=== PATIENT | female | born 1985 | race Caucasian/White ===

== ENCOUNTER 2017-03-06 20:27 | Emergency (ER) | payer MEDICAID, OTHER ==
[~2017-03-06] VITALS: Ht 165.1 cm; Wt 59.0 kg
[2017-03-06] MEDS ORDERED: ONDANSETRON ODT 4 MG TAB.RAPDIS SL ONE (21:00)
[2017-03-06] MEDS ORDERED: PROCHLORPERAZINE EDISYLATE 10 MG/2 ML VIAL IM ONE (21:00)
[2017-03-06] MEDS ORDERED: DICYCLOMINE HCL 10 MG/5 ML UDC LIQ PO ONE (21:00)
[2017-03-06] MEDS ORDERED: PROCHLORPERAZINE EDISYLATE 10 MG/2 ML VIAL ONE (21:20)
[2017-03-06] MEDS ORDERED: DICYCLOMINE HCL 10 MG/5 ML UDC LIQ ONE (21:20)
[2017-03-06] MEDS ORDERED: ONDANSETRON ODT 4 MG TAB.RAPDIS ONE (21:20)
[2017-03-06 21:48] LABS: POTASSIUM 3.4 mmol/L (3.5-5.1)
[2017-03-06 21:51] LABS: BASOPHILS % (AUTO) 0.3 % (0.0-2.0); EOSINOPHILS % (AUTO) 0.2 % (0.0-7.0); HEMATOCRIT 39.4 % (37-47); LYMPHOCYTES # (AUTO) 1.5 K/UL (0.8-4.8); LYMPHOCYTES % (AUTO) 17.6 % (20.5-51.5); MEAN CORPUSCULAR HGB CONC 33 g/dL (32.0-37.0); MEAN CORPUSCULAR VOLUME 90.8 FL (81.0-99.0); MONOCYTES # (AUTO) 0.3 K/UL (0.1-1.30); MONOCYTES % (AUTO) 3.3 % (0.0-11.0); NEUTROPHILS # (AUTO) 6.9 K/UL (1.8-8.9); NEUTROPHILS % (AUTO) 78.6 % (38.5-71.5); PLATELET COUNT (AUTO) 232 K/UL (150-450); RED BLOOD CELL COUNT(AUTO) 4.34 MIL/UL (4.2-5.4); WHITE BLOOD COUNT (AUTO) 8.7 K/UL (4.0-11.2)
[2017-03-06 21:55] LABS: BILIRUBIN,DIRECT 0.1 mg/dL (0.0-0.2); BILIRUBIN,TOTAL 0.3 mg/dL (0.2-1.0)
--- NOTE | 2017-03-06 22:05 | NUR ---
Patient eloped from facility. ER physician notified.
== END 2017-03-06 22:06 | disposition left against medical advice (07) ==
LOC: ER 20:29
DX: F11.23 Opioid dependence with withdrawal (principal); F17.200 Nicotine dependence, unspecified, uncomplicated; I47.1 Supraventricular tachycardia; Z59.0 Homelessness; Z88.8 Allergy status to other drugs, medicaments and biological substances
CPT/HCPCS: 36415; 80048; 80076; 83690; 84703; 85025; 93005; 96372; 99285; A4663; J0780; Q0162

== ENCOUNTER 2017-06-09 11:57 | Emergency (ER) | payer MEDICAID ==
[~2017-06-09] VITALS: Ht 165.1 cm; Wt 59.0 kg
[2017-06-09] MEDS ORDERED: ONDANSETRON IV *ER 4 MG/2 ML VIAL IV ONE (13:57)
[2017-06-09] MEDS ORDERED: LORAZEPAM 2 MG/1 ML VIAL IV ONE (13:57)
[2017-06-09] MEDS ORDERED: PIPERACILLIN/TAZOBACTAM/D5W 3.375 G in PREMIXED 1 EACH IV ONE (14:00)
[2017-06-09] MEDS ORDERED: IV NS 1000 ML 1,000 ML IV ONE (14:00)
--- NOTE | 2017-06-09 14:21 | NUR ---
PT REFUSED SALINE LOCK TYO EXTREMITIES, STATED SHE HAD TO HAVE AN IV TO HER NECK PLACED BY . DR BOOGIE NOTIFIED.
[2017-06-09 14:45] LABS: *BLOOD, URINE NEGATIVE (NEGATIVE); *CLARITY,URINE SLIGHTLY CLOUDY (CLEAR); *COLOR,URINE YELLOW (YELLOW); *KETONES,URINE TRACE (NEGATIVE); *PROTEIN,URINE 1+ (NEGATIVE); LEUKOCYTE ESTERASE ,URINE NEGATIVE (NEGATIVE); NITRITE, URINE NEGATIVE (NEGATIVE); UGLUCOSE NEGATIVE (NEGATIVE)
[2017-06-09 15:14] LABS: *BILIRUBIN,URIN NEGATIVE (NEGATIVE)
[2017-06-09 15:16] LABS: BACTERIA,URINE FEW /HPF (NONE SEEN); SQUAMOUS EPITHELIAL CELL,UR MODERATE /HPF (NONE SEEN); WBC,URINE 0-3 /HPF (0-3)
[2017-06-09 15:17] LABS: CALCIUM OXALATE CRYSTALS,UR MANY /HPF (NONE SEEN); MUCUS,URINE MANY /LPF (0-FEW)
[2017-06-09 15:23] LABS: *AMPHETAMINE, URINE POSITIVE (NEGATIVE); *BARBITURATE, URINE NEGATIVE (NEGATIVE); *CANNABINOID, URINE NEGATIVE (NEGATIVE); *COCCAINE, URINE POSITIVE (NEGATIVE); *OPIATE, URINE POSITIVE (NEGATIVE); *PHENCYCLIDINE SCREEN,URINE NEGATIVE (NEGATIVE)
--- NOTE | 2017-06-09 15:45 | NUR ---
DR BOOGIE ATTEMPTED TWICE FOR IV AXCES TO NECK AND WAS NOT SUCCESSFUL. CALLED [facility] FOR DR JEFFERS, DR JEFFERS IS TO BE PAGED/CALLED BY [facility] AND DIRECTED TO CALL US BACK.
[2017-06-09] MEDS ORDERED: LORAZEPAM 1 MG TABLET ONE (15:51)
[2017-06-09] MEDS ORDERED: LORAZEPAM 0.5 MG TABLET PO ONE (16:00)
[2017-06-09] MEDS ORDERED: AMOXICILLIN-CLAVUL 875-125MG TABLET ONE (16:15)
[2017-06-09] MEDS ORDERED: AMOXICILLIN-CLAVUL 875-125MG TABLET PO ONE (16:15)
[2017-06-09] MEDS ORDERED: MORPHINE SULFATE 4 MG/1 ML DISP.SYRIN IM ONE (17:57)
--- NOTE | 2017-06-09 17:57 | NUR ---
DR BOOGIE ATTEMPTED A FEMORAL CENTRAL LINE AND WAS NOT SUCESSFULL. DR JEFFERS ACCEPTED THE PT TO [facility]. PT WAS SCHEDULED FOR PICC LINE AT 9PM.
[2017-06-09] MEDS ORDERED: CEFTRIAXONE 1 G VIAL IM ONE (18:00)
--- NOTE | 2017-06-09 18:11 | NUR ---
PHARMACY NOTE; MUL;TIPLE ATTEMPTS TO OBTAIN IV AXCESS. NO IV MEDS/FLUIDFS ADMIN. SO DR BOOGIE AWARE.
[2017-06-09] MEDS ORDERED: MORPHINE SULFATE 4 MG/1 ML DISP.SYRIN ONE (18:17)
[2017-06-09] MEDS ORDERED: CEFTRIAXONE 1 G VIAL ONE (18:17)
[2017-06-09] MEDS ORDERED: LIDOCAINE HCL 1% 20 ML VIAL ONE (18:18)
--- NOTE | 2017-06-09 19:20 | NUR ---
BEDSIDE REPORT TO ERIN MOJICA.
--- NOTE | 2017-06-09 19:29 | NUR ---
Pt. admitted to [facility]. Pending PICC/Midline placement. Report given to [facility] Intake Staff.
== END 2017-06-09 19:31 | disposition home or self-care (01) ==
LOC: ER 11:57
DX: F12.10 Cannabis abuse, uncomplicated (principal); F14.10 Cocaine abuse, uncomplicated; F11.10 Opioid abuse, uncomplicated; L03.116 Cellulitis of left lower limb; F17.210 Nicotine dependence, cigarettes, uncomplicated; Z88.8 Allergy status to other drugs, medicaments and biological substances; Z59.0 Homelessness
CPT/HCPCS: 71045; 80307; 93005; A4663; J0696; J2270; J3490; J7030; J7050

== ENCOUNTER 2018-03-09 19:54 | Emergency (ER) | payer MEDICAID ==
[~2018-03-09] VITALS: Ht 165.1 cm; Wt 59.9 kg
[2018-03-09 20:42] LABS: *BILIRUBIN,URIN NEGATIVE (NEGATIVE); *BLOOD, URINE NEGATIVE (NEGATIVE); *COLOR,URINE YELLOW (YELLOW); *KETONES,URINE NEGATIVE (NEGATIVE); *PROTEIN,URINE 1+ (NEGATIVE); *URINE HCG, QUAL NEGATIVE (NEGATIVE); LEUKOCYTE ESTERASE ,URINE TRACE (NEGATIVE); NITRITE, URINE NEGATIVE (NEGATIVE); PH,URINE 6.5 (5.0-8.0); UGLUCOSE NEGATIVE (NEGATIVE)
[2018-03-09 20:51] LABS: *CLARITY,URINE CLOUDY (CLEAR)
[2018-03-09 20:53] LABS: BACTERIA,URINE MODERATE /HPF (NONE SEEN); MUCUS,URINE MANY /LPF (0-FEW); SQUAMOUS EPITHELIAL CELL,UR MANY /HPF (NONE SEEN)
[2018-03-09 20:57] LABS: *AMPHETAMINE, URINE POSITIVE (NEGATIVE); *BARBITURATE, URINE NEGATIVE (NEGATIVE); *CANNABINOID, URINE NEGATIVE (NEGATIVE); *COCCAINE, URINE POSITIVE (NEGATIVE); *OPIATE, URINE POSITIVE (NEGATIVE); *PHENCYCLIDINE SCREEN,URINE NEGATIVE (NEGATIVE)
[2018-03-09 21:27] LABS: BASOPHILS # (AUTO) 0.1 K/uL (0.0-8.0); BASOPHILS % (AUTO) 0.7 % (0.0-2.0); EOSINOPHILS # (AUTO) 0.1 K/uL (0.0-0.7); HEMATOCRIT 39.6 % (31.2-41.9); HEMOGLOBIN 13.5 g/dL (10.9-14.3); LYMPHOCYTES # (AUTO) 2.7 K/uL (20.0-40.0); LYMPHOCYTES % (AUTO) 21.7 % (20.5-51.5); MEAN CORPUSCULAR HGB CONC 34 g/dL (32.3-35.6); MEAN CORPUSCULAR VOLUME 93.9 fL (75.5-95.3); MONOCYTES # (AUTO) 0.8 K/uL (2.0-10.0); MONOCYTES % (AUTO) 6.6 % (0.0-11.0); NEUTROPHILS # (AUTO) 8.7 K/uL (1.8-8.9); PLATELET COUNT (AUTO) 301 K/uL (179-408); RED BLOOD CELL COUNT(AUTO) 4.22 MIL/uL (3.63-4.92); WHITE BLOOD COUNT (AUTO) 12.5 K/uL (3.8-11.8)
[2018-03-09 21:34] LABS: CREATININE 0.9 mg/dL (0.6-1.3)
[2018-03-09 21:39] LABS: BILIRUBIN,DIRECT 0.1 mg/dL (0.0-0.2); BILIRUBIN,TOTAL 0.3 mg/dL (0.2-1.0); TOTAL PROTEIN, SERUM 8.5 g/dL (6.4-8.2)
[2018-03-09 21:41] LABS: ETHANOL < 3 MG/DL (0-0)
[2018-03-09] MEDS ORDERED: POTASSIUM CHLORIDE 10 MEQ TAB.PRT.SR ONE (21:42)
[2018-03-09] MEDS ORDERED: POTASSIUM CHLORIDE 10 MEQ TAB.PRT.SR PO ONE (21:45)
[2018-03-09 21:59] LABS: THYROID STIMULATING HORMONE 0.964 mIU/mL (0.358-3.740)
[2018-03-09] MEDS ORDERED: NEOMY/BACITRA/POLYMYXIN B OINT UD PACKET TP ONE ×2 (22:30)
--- NOTE | 2018-03-09 22:37 | NUR ---
Patient discharged to home in stable conditon. Written and verbal after care instructions given. Patient verbalizes understanding of instructions. Pt walked out of ER in steady gait with friend. All belongings with pt. VSS. NAD noted.
[2018-03-09 22:39] VITALS: BP 124/84
== END 2018-03-09 22:43 | disposition home or self-care (01) ==
LOC: ER 19:55
DX: R00.2 Palpitations (principal); E87.6 Hypokalemia; F17.200 Nicotine dependence, unspecified, uncomplicated; F11.10 Opioid abuse, uncomplicated; F14.10 Cocaine abuse, uncomplicated; Z59.0 Homelessness; Z88.8 Allergy status to other drugs, medicaments and biological substances
CPT/HCPCS: 36415; 71045; 80048; 80076; 80307; 81001; 83690; 84443; 84484; 84703; 85025; 93005; 99284; G0480; 70030-TC; A4663

== ENCOUNTER 2019-05-28 04:54 | Emergency (ER) | payer MEDICAID ==
[~2019-05-28] VITALS: Ht 165.1 cm; Wt 59.0 kg
[2019-05-28 05:08] LABS: *BILIRUBIN,URIN NEGATIVE (NEGATIVE); *BLOOD, URINE TRACE (NEGATIVE); *CLARITY,URINE CLEAR (CLEAR); *COLOR,URINE YELLOW (YELLOW); *KETONES,URINE TRACE (NEGATIVE); *URINE HCG, QUAL NEGATIVE (NEGATIVE); LEUKOCYTE ESTERASE ,URINE NEGATIVE (NEGATIVE); NITRITE, URINE NEGATIVE (NEGATIVE); UGLUCOSE NEGATIVE (NEGATIVE)
--- NOTE | 2019-05-28 05:12 | NUR ---
Patient presents to ER with c/o of Rt flank pain x 1 week. Patient denies pain or burning during urination. Patient is alert and oriented x 4. Patient noted to be writhing in pain. Placed in Bed 2B and attached to bedside monitor. Awaiting MD rogers.
[2019-05-28 05:13] LABS: BACTERIA,URINE FEW /HPF (NONE SEEN); MUCUS,URINE MODERATE /LPF (0-FEW); RBC,URINE 0-3 /HPF (0-3); SQUAMOUS EPITHELIAL CELL,UR MANY /HPF (NONE SEEN); WBC,URINE NONE SEEN /HPF (0-3)
[2019-05-28] MEDS ORDERED: KETOROLAC TROMETHAMINE 30 MG INJ ONE (05:22)
[2019-05-28] MEDS ORDERED: ONDANSETRON 4 MG/2 ML VIAL ONE (05:23)
[2019-05-28] MEDS ORDERED: MORPHINE SULFATE 4 MG/1 ML DISP.SYRIN ONE (05:23)
[2019-05-28] MEDS ORDERED: MORPHINE SULFATE 2 MG/1 ML DISP.SYRIN IV ONE (05:30)
[2019-05-28] MEDS ORDERED: KETOROLAC TROMETHAMINE 15 MG INJ IVP ONE (05:30)
[2019-05-28] MEDS ORDERED: ONDANSETRON 4 MG/2 ML VIAL IV ONE (05:30)
[2019-05-28] MEDS ORDERED: IV NORMAL SALINE 1000 ML BAG IV ONE (05:30)
--- NOTE | 2019-05-28 05:38 | NUR ---
PT REFUSED IV ZOFRAN AND IV KETOROLAC AT THIS TIME DENIES N/V AT THIS TIME
--- NOTE | 2019-05-28 05:49 | NUR ---
Pt seen and examined by Dr. Michel.
--- NOTE | 2019-05-28 05:56 | NUR ---
PT REQUESTED IV TORADOL AT THIS TIME STILL REFUSED IV ZOFRAN
--- NOTE | 2019-05-28 06:18 | NUR ---
Pt taken to CT
--- NOTE | 2019-05-28 06:28 | NUR ---
pt returned from CT
--- NOTE | 2019-05-28 06:42 | NUR ---
3rd attempt by lab to obtain blood, and patient refused for hand to be used. Dr. Jasso made aware.
--- NOTE | 2019-05-28 06:54 | NUR ---
Blood drawn from IV site without resistance. IV flushed, patent with no signs and symptoms of infiltration and specimen given to [employer] ref[employer] laborer Joyce.
[2019-05-28 07:04] LABS: BASOPHILS % (AUTO) 0.3 % (0.0-2.0); EOSINOPHILS # (AUTO) 0.1 K/uL (0.0-0.7); EOSINOPHILS % (AUTO) 0.8 % (0.0-7.0); HEMOGLOBIN 12.4 g/dL (10.9-14.3); LYMPHOCYTES # (AUTO) 1.1 K/uL (20.0-40.0); LYMPHOCYTES % (AUTO) 14.6 % (20.5-51.5); MEAN CORPUSCULAR HEMOGLOBIN 30.7 uug (24.7-32.8); MEAN CORPUSCULAR HGB CONC 34 g/dL (32.3-35.6); MEAN CORPUSCULAR VOLUME 91.8 fL (75.5-95.3); MONOCYTES # (AUTO) 0.6 K/uL (2.0-10.0); MONOCYTES % (AUTO) 8.2 % (0.0-11.0); NEUTROPHILS # (AUTO) 5.9 K/uL (1.8-8.9); NEUTROPHILS % (AUTO) 76.1 % (38.5-71.5); PLATELET COUNT (AUTO) 230 K/uL (179-408); RED BLOOD CELL COUNT(AUTO) 4.03 MIL/uL (3.63-4.92); WHITE BLOOD COUNT (AUTO) 7.7 K/uL (3.8-11.8)
--- NOTE | 2019-05-28 07:04 | NUR ---
Report given to Josselyn MOJICA and Trinidad MOJICA.
[2019-05-28 07:14] LABS: BILIRUBIN,DIRECT 0.1 mg/dL (0.0-0.2); BILIRUBIN,TOTAL 0.2 mg/dL (0.2-1.0); CREATININE 0.7 mg/dL (0.6-1.3); POTASSIUM 4.1 mmol/L (3.5-5.1); TOTAL PROTEIN, SERUM 7.2 g/dL (6.4-8.2)
--- NOTE | 2019-05-28 07:39 | NUR ---
Received pt in stable condition, laying in bed comfortably, c/o pain 11/18 . Reconnected her to IV saline. Waiting for ER doc eval.
--- NOTE | 2019-05-28 08:05 | NUR ---
IV removed. Catheter intact and site benign. Pressure and 4x4 gauze applied to site. No bleeding noted.Patient discharged to home in stable conditon with steady gait. Written and verbal after care instructions given. Patient verbalizes understanding of instructions.
[2019-05-28 08:34] VITALS: BP 110/80
== END 2019-05-28 08:05 | disposition home or self-care (01) ==
LOC: ER 04:56
DX: R10.9 Unspecified abdominal pain (principal); F17.200 Nicotine dependence, unspecified, uncomplicated; F11.10 Opioid abuse, uncomplicated; F14.10 Cocaine abuse, uncomplicated; Z88.8 Allergy status to other drugs, medicaments and biological substances
CPT/HCPCS: 36415; 74176; 80048; 80076; 81000; 81001; 84703; 85025; 96374; 96375; 99284; J1885; J2270; J2405; A4663; J7030

== ENCOUNTER 2020-08-16 03:37 | Emergency (ER) | payer MEDICAID ==
[~2020-08-16] VITALS: Ht 167.6 cm; Wt 54.4 kg
--- NOTE | 2020-08-16 03:53 | NUR ---
Dr. Mendoza at bedside for MSE.
[2020-08-16] MEDS ORDERED: CEFTRIAXONE 1 G VIAL IM ONE (04:15)
[2020-08-16] MEDS ORDERED: SULFAMETH/TRIMETH 800/160 MG TABLET PO ONE (04:15)
[2020-08-16] MEDS ORDERED: HYDROMORPHONE HCL 2 MG TABLET PO ONE (04:15)
[2020-08-16] MEDS ORDERED: SULF1TAB48 PO (04:16)
[2020-08-16] MEDS ORDERED: HYDR-3980 PO (04:16)
[2020-08-16] MEDS ORDERED: CEPH500C2 PO (04:16)
[2020-08-16] MEDS ORDERED: CEFTRIAXONE 1 G VIAL ONE (04:21)
[2020-08-16] MEDS ORDERED: SULFAMETH/TRIMETH 800/160 MG TABLET ONE (04:21)
[2020-08-16] MEDS ORDERED: HYDROMORPHONE HCL 2 MG TABLET ONE (04:21)
[2020-08-16 04:28] VITALS: BP 133/83
--- NOTE | 2020-08-16 04:28 | NUR ---
Patient discharged to home in stable condition. Written and verbal after care instructions given. Patient verbalizes understanding of instructions. Stressed follow up or return to ER for worsening s/s. Patient out of ER with steady gait, no acute signs of distress, VSS, all belongings taken.
== END 2020-08-16 04:28 | disposition home or self-care (01) ==
LOC: ER 03:37
DX: L02.415 Cutaneous abscess of right lower limb (principal); L03.116 Cellulitis of left lower limb; L03.115 Cellulitis of right lower limb; F17.210 Nicotine dependence, cigarettes, uncomplicated; S71.132S Puncture wound without foreign body, left thigh, sequela; S71.131S Puncture wound without foreign body, right thigh, sequela; X78.8XXS Intentional self-harm by other sharp object, sequela
CPT/HCPCS: 10060; 96372; 99284; 99406; J0696; J3490; A4663

== ENCOUNTER 2020-11-04 07:09 | Emergency (ER) | payer MEDICAID ==
[~2020-11-04] VITALS: Ht 165.1 cm; Wt 95.3 kg
[~2020-11-04 07:09] MED LIST: CEPH500C2 PO; HYDR-3980 PO; SULF1TAB48 PO
[2020-11-04] MEDS ORDERED: SULF1TAB48 PO (07:36)
[2020-11-04] MEDS ORDERED: CEPH500C2 PO (07:36)
--- NOTE | 2020-11-04 07:51 | NUR ---
Patient discharged to home in stable condition with slow steady gait. Written and verbal after care instructions given to patient. Patient verbalized understanding & compliance of instructions. Stressed follow up primary doctor or return to ER for worsening s/s.
== END 2020-11-04 07:51 | disposition home or self-care (01) ==
LOC: ER 07:16
DX: L03.115 Cellulitis of right lower limb (principal); F19.10 Other psychoactive substance abuse, uncomplicated
CPT/HCPCS: A4663

== ENCOUNTER 2022-01-28 05:57 | Emergency (ER) | payer MEDICAID ==
[~2022-01-28] VITALS: Ht 167.6 cm; Wt 81.6 kg
[2022-01-28] MEDS ORDERED: KETOROLAC TROMETHAMINE 30 MG INJ IM ONE (06:45)
[2022-01-28 06:55] LABS: *BILIRUBIN,URIN NEGATIVE (NEGATIVE); *BLOOD, URINE NEGATIVE (NEGATIVE); *CLARITY,URINE CLEAR (CLEAR); *COLOR,URINE YELLOW (YELLOW); *KETONES,URINE TRACE (NEGATIVE); LEUKOCYTE ESTERASE ,URINE NEGATIVE (NEGATIVE); NITRITE, URINE NEGATIVE (NEGATIVE); UGLUCOSE NEGATIVE (NEGATIVE)
--- NOTE | 2022-01-28 07:05 | NUR ---
Recieved Pt in bed, resting w/ both eyes closed, NAD noted. Awaiting for results.
[2022-01-28 07:40] LABS: *URINE HCG, QUAL NEGATIVE (NEGATIVE)
[2022-01-28] MEDS ORDERED: KETOROLAC TROMETHAMINE 30 MG INJ ONE (07:43)
[2022-01-28 07:51] LABS: BACTERIA,URINE NONE SEEN /HPF (NONE SEEN); RBC,URINE NONE SEEN /HPF (0-3); SQUAMOUS EPITHELIAL CELL,UR FEW /HPF (NONE SEEN); WBC,URINE 0-3 /HPF (0-3)
[2022-01-28] MEDS ORDERED: CYCL10TA9 PO (07:51)
[2022-01-28] MEDS ORDERED: CEPH500C2 PO (07:51)
[2022-01-28] MEDS ORDERED: NAPR500T6 PO (07:51)
[2022-01-28 09:00] VITALS: BP 120/65
--- NOTE | 2022-01-28 09:00 | NUR ---
Patient discharged to home in stable condition. Written and verbal after care instructions given. Patient verbalizes understanding of instructions. Stressed follow up or return to ER for worsening s/s.
== END 2022-01-28 09:02 | disposition home or self-care (01) ==
LOC: ER 06:00
DX: R30.0 Dysuria (principal); M25.532 Pain in left wrist; S63.502A Unspecified sprain of left wrist, initial encounter; S60.221A Contusion of right hand, initial encounter; S39.012A Strain of muscle, fascia and tendon of lower back, initial encounter; V47.6XXA Car passenger injured in collision with fixed or stationary object in traffic accident, initial encounter; Y92.481 Parking lot as the place of occurrence of the external cause; F17.200 Nicotine dependence, unspecified, uncomplicated; Z87.81 Personal history of (healed) traumatic fracture
CPT/HCPCS: 99284; 81001; 84703; 87086; 73110; 73130; 96372; J1885; A4663

== ENCOUNTER 2023-02-21 22:31 | Inpatient (IN) | payer MEDICAID ==
[~2023-02-21] VITALS: Ht 170.2 cm; Wt 86.2 kg
[~2023-02-21 22:31] MED LIST changes: +CYCL10TA9 PO; +NAPR500T6 PO
[2023-02-21] MEDS ORDERED: KETOROLAC TROMETHAMINE 15 MG INJ IVP ONE (23:00)
[2023-02-21] MEDS ORDERED: METOCLOPRAMIDE HCL 10 MG/2 ML VIAL IV ONE (23:00)
[2023-02-21] MEDS ORDERED: METOCLOPRAMIDE HCL 10 MG/2 ML VIAL ONE (23:37)
[2023-02-21] MEDS ORDERED: KETOROLAC TROMETHAMINE 15 MG INJ ONE (23:37)
[2023-02-22 02:21] LABS: BASOPHILS % (AUTO) 0.1 % (0.0-2.0); EOSINOPHILS % (AUTO) 0.1 % (0.0-7.0); HEMATOCRIT 38.4 % (31.2-41.9); HEMOGLOBIN 13.2 g/dL (10.9-14.3); LYMPHOCYTES # (AUTO) 0.7 K/uL (0.8-4.8); LYMPHOCYTES % (AUTO) 14.1 % (20.5-51.5); MEAN CORPUSCULAR HGB CONC 34 g/dL (32.3-35.6); MEAN CORPUSCULAR VOLUME 90.3 fL (75.5-95.3); MONOCYTES # (AUTO) 0.1 K/uL (0.1-1.30); MONOCYTES % (AUTO) 2.1 % (0.0-11.0); NEUTROPHILS # (AUTO) 4.1 K/uL (1.8-8.9); NEUTROPHILS % (AUTO) 83.6 % (38.5-71.5); PLATELET COUNT (AUTO) 154 K/uL (179-408); RED BLOOD CELL COUNT(AUTO) 4.26 MIL/uL (3.63-4.92); RED CELL DISTRIBUTION WIDTH 13.4 % (12.3-17.7); WHITE BLOOD COUNT (AUTO) 4.9 K/uL (3.8-11.8)
[2023-02-22 02:41] LABS: DIFFERENTIAL COMMENT 1
[2023-02-22 02:51] LABS: CALCIUM 7.8 mg/dL (8.5-10.1); CARBON DIOXIDE 29 mmol/L (21-32); CHLORIDE 92 mmol/L (98-107); CREATININE 1.5 mg/dL (0.6-1.3); GLUCOSE 111 mg/dL (74-106); POTASSIUM 3.2 mmol/L (3.5-5.1); SODIUM SERUM 130 mmol/L (136-145); UREA NITROGEN, BLOOD 24 mg/dL (7-18)
[2023-02-22 02:56] LABS: ALANINE AMINOTRANSFERASE 11 U/L (14-59); ALBUMIN 1.9 g/dL (3.4-5.0); ALKALINE PHOSPHATASE 41 U/L (50-136); ASPARTATE AMINOTRANSFERASE 23 U/L (15-37); BILIRUBIN,DIRECT 1.2 mg/dL (0.0-0.2); BILIRUBIN,TOTAL 1.5 mg/dL (0.2-1.0); LIPASE 19 U/L (16-77); TOTAL PROTEIN, SERUM 6.1 g/dL (6.4-8.2)
[2023-02-22 02:58] LABS: LACTIC ACID 3.4 mmol/L (0.4-2.0)
[2023-02-22 03:27] LABS: ACETAMINOPHEN < 2.0 ug/mL (10-30); CREATINE KINASE, TOTAL 86 U/L (26-192)
[2023-02-22] MEDS ORDERED: VANCOMYCIN IV 200 ML ONE (04:39)
[2023-02-22] MEDS ORDERED: CEFTRIAXONE /D5W 50ML IVPB **ER PYXIS IV ONE (04:39)
[2023-02-22] MEDS ORDERED: VANCOMYCIN IV 1,000 MG in IV DEXTROSE 5% 250 ML IV ONE (04:45)
[2023-02-22] MEDS ORDERED: IV NORMAL SALINE 1000 ML BAG IV ONE (04:45)
[2023-02-22] MEDS ORDERED: CEFTRIAXONE 2 G in IV DEXTROSE 5% 100 ML IV ONE (04:45)
[2023-02-22 05:26] LABS: ETHANOL < 3 MG/DL (0-10)
[2023-02-22] MEDS ORDERED: AZITHROMYCIN IV 500 MG in IV DEXTROSE 5% 250 ML IV ONE (05:30)
[2023-02-22 05:48] LABS: PREGNANCY TEST SERUM QUAN 1 miul/L (0-6)
[2023-02-22] MEDS ORDERED: IV NS 1000 ML 1,000 ML IV SCH (06:15)
[2023-02-22] MEDS ORDERED: MAGNESIUM HYDROXIDE 30 ML LIQUID UDC PO PRN (06:15)
[2023-02-22] MEDS ORDERED: ONDANSETRON 4 MG/2 ML VIAL IV PRN (06:15)
[2023-02-22] MEDS ORDERED: REMEDY ESSENTIAL ZINC PASTE 113 GM TP PRN (06:15)
[2023-02-22 06:17] LABS: *BLOOD, URINE 2+ (NEGATIVE); *CLARITY,URINE SLIGHTLY CLOUDY (CLEAR); *COLOR,URINE YELLOW (YELLOW); *KETONES,URINE NEGATIVE (NEGATIVE); LEUKOCYTE ESTERASE ,URINE NEGATIVE (NEGATIVE); NITRITE, URINE NEGATIVE (NEGATIVE); UGLUCOSE NEGATIVE (NEGATIVE)
[2023-02-22 06:19] LABS: *BILIRUBIN,URIN 2+ (NEGATIVE); *PROTEIN,URINE 3+ (NEGATIVE)
[2023-02-22 06:28] LABS: BACTERIA,URINE FEW /HPF (NONE SEEN); SQUAMOUS EPITHELIAL CELL,UR FEW /HPF (NONE SEEN); WBC,URINE 0-3 /HPF (0-3)
[2023-02-22 06:29] LABS: *AMPHETAMINE, URINE POSITIVE (NEGATIVE); *BARBITURATE, URINE NEGATIVE (NEGATIVE); *BENZODIAZEPINE, URINE NEGATIVE (NEGATIVE); *CANNABINOID, URINE POSITIVE (NEGATIVE); *COCCAINE, URINE NEGATIVE (NEGATIVE); *OPIATE, URINE NEGATIVE (NEGATIVE); *PHENCYCLIDINE SCREEN,URINE POSITIVE (NEGATIVE)
[2023-02-22 06:30] LABS: FENTANYL, URINE POSITIVE (NEGATIVE)
[2023-02-22] MEDS ORDERED: AZITHROMYCIN 500MG/ D5W 250ML IVPB **ER PYXIS ONLY IV ONE (07:44)
[2023-02-22] MEDS ORDERED: POTASSIUM CHLORIDE 10 MEQ TAB.PRT.SR PO ONE (09:15)
[2023-02-22 09:32] VITALS: BP 131/99; TEMP 98.4; O2SAT 98
[2023-02-22] MEDS: PIPERACILLIN SODIUM/TAZOBACTAM 3.375 G in IV DEXTROSE 5% 50 ML IV SCH ×2 (11:10→18:19)
[2023-02-22 12:32] LABS: *AMPHETAMINE, URINE POSITIVE (NEGATIVE); *BARBITURATE, URINE NEGATIVE (NEGATIVE); *BENZODIAZEPINE, URINE NEGATIVE (NEGATIVE); *CANNABINOID, URINE NEGATIVE (NEGATIVE); *COCCAINE, URINE NEGATIVE (NEGATIVE); *OPIATE, URINE NEGATIVE (NEGATIVE); *PHENCYCLIDINE SCREEN,URINE POSITIVE (NEGATIVE)
[2023-02-22 12:46] LABS: FENTANYL, URINE POSITIVE (NEGATIVE)
[2023-02-22] MEDS: ACETAMINOPHEN 325 MG TABLET PO PRN (12:47)
[2023-02-22 14:23] LABS: ABG BASE EXCESS 0.4 mmol/L; ABG HCO3 23.3 mmol/L; ABG PCO2 32.1 mmHg (35.0-45.0); ABG PH 7.479 (7.350-7.450); ABG PO2 85.5 mmHg (75.0-100.0); ABG SITE RIGHT RADIAL; ABG TOTAL HEMOGLOBIN 12.3 G/dL (12.0-16.0); COHb 0.6 % (0.5-1.5); MetHb 0.3 % (0.0-1.5); O2Hb 95.4 % (94.0-97.0)
[2023-02-22 15:54] VITALS: BP 87/58; TEMP 97.7; O2SAT 100
[2023-02-22 16:28] VITALS: BP 91/58; TEMP 98.4; O2SAT 94
[2023-02-22] MEDS: NICOTINE 21 MG/24HR PATCH TD SCH (18:19)
[2023-02-22] MEDS: KETOROLAC TROMETHAMINE 30 MG INJ IVP PRN (19:29)
[2023-02-22 20:00] VITALS: BP 101/69; TEMP 98; O2SAT 97
[2023-02-22 21:10] VITALS: O2SAT 97
[2023-02-22] MEDS ORDERED: VANCOMYCIN IV 1,250 MG in IV DEXTROSE 5% 250 ML IV SCH (23:00)
[2023-02-23] VITALS: BP 100/63; TEMP 97.6; O2SAT 99
[2023-02-23] MEDS: PIPERACILLIN SODIUM/TAZOBACTAM 3.375 G in IV DEXTROSE 5% 50 ML IV SCH ×5 (00:18→23:17)
[2023-02-23 04:00] VITALS: BP 101/59; TEMP 98.1; O2SAT 99
[2023-02-23] MEDS: KETOROLAC TROMETHAMINE 30 MG INJ IVP PRN (06:21)
[2023-02-23 07:15] LABS: BASOPHILS % (AUTO) 0.2 % (0.0-2.0); EOSINOPHILS % (AUTO) 0.2 % (0.0-7.0); HEMATOCRIT 30.2 % (31.2-41.9); HEMOGLOBIN 10.1 g/dL (10.9-14.3); LYMPHOCYTES # (AUTO) 0.6 K/uL (0.8-4.8); LYMPHOCYTES % (AUTO) 11.8 % (20.5-51.5); MEAN CORPUSCULAR HEMOGLOBIN 30.8 uug (24.7-32.8); MEAN CORPUSCULAR HGB CONC 34 g/dL (32.3-35.6); MEAN CORPUSCULAR VOLUME 91.6 fL (75.5-95.3); MONOCYTES # (AUTO) 0.1 K/uL (0.1-1.30); MONOCYTES % (AUTO) 2.5 % (0.0-11.0); NEUTROPHILS # (AUTO) 4.4 K/uL (1.8-8.9); NEUTROPHILS % (AUTO) 85.3 % (38.5-71.5); PLATELET COUNT (AUTO) 146 K/uL (179-408); RED BLOOD CELL COUNT(AUTO) 3.29 MIL/uL (3.63-4.92); RED CELL DISTRIBUTION WIDTH 13.7 % (12.3-17.7); WHITE BLOOD COUNT (AUTO) 5.2 K/uL (3.8-11.8)
[2023-02-23 07:19] LABS: DIFFERENTIAL COMMENT 1
[2023-02-23 08:05] LABS: MAGNESIUM 2.4 mg/dL (1.8-2.4); PHOSPHOROUS 1.7 mg/dL (2.5-4.9)
[2023-02-23] MEDS: IV NS 1000 ML 1,000 ML IV PRN ×2 (08:29→23:21)
[2023-02-23 08:40] LABS: CALCIUM 7.6 mg/dL (8.5-10.1); POTASSIUM 2.8 mmol/L (3.5-5.1)
[2023-02-23] MEDS ORDERED: POTASSIUM CHLORIDE 20 MEQ TAB.PRT.SR PO ONE ×2 (09:00→12:00)
[2023-02-23] MEDS: NICOTINE 21 MG/24HR PATCH TD SCH (09:37)
[2023-02-23 11:36] VITALS: BP 96/60; TEMP 97.3; O2SAT 100
[2023-02-23 12:20] LABS: *BLOOD, URINE NEGATIVE (NEGATIVE); *CLARITY,URINE CLEAR (CLEAR); *COLOR,URINE DARK YELLOW (YELLOW); *KETONES,URINE NEGATIVE (NEGATIVE); *PROTEIN,URINE 2+ (NEGATIVE); *UROBILINOGEN,URINE >=8.0 E.U./dl (NORMAL); LEUKOCYTE ESTERASE ,URINE NEGATIVE (NEGATIVE); NITRITE, URINE NEGATIVE (NEGATIVE); UGLUCOSE NEGATIVE (NEGATIVE)
[2023-02-23 12:27] LABS: *CREATININE,URINE 115.9 mg/dL (30-125)
[2023-02-23 12:57] LABS: *BILIRUBIN,URIN 1+ (NEGATIVE)
[2023-02-23] MEDS: VANCOMYCIN IV 1,250 MG in IV DEXTROSE 5% 250 ML IV SCH ×2 (12:58→23:57)
[2023-02-23 13:50] LABS: WBC,URINE 0-3 /HPF (0-3)
[2023-02-23 13:51] LABS: BACTERIA,URINE FEW /HPF (NONE SEEN); SQUAMOUS EPITHELIAL CELL,UR MODERATE /HPF (NONE SEEN)
[2023-02-23 15:43] VITALS: BP 94/60; TEMP 98.3; O2SAT 95
[2023-02-23] MEDS ORDERED: NEUTRA PHOS PACKET PO ONE (16:00)
[2023-02-23 16:45] VITALS: O2SAT 96
[2023-02-23 20:00] VITALS: BP 100/56; TEMP 97.5; O2SAT 100
[2023-02-23] MEDS: ACETAMINOPHEN 325 MG TABLET PO PRN (21:36)
[2023-02-24] VITALS: BP 101/59; TEMP 98; O2SAT 98
[2023-02-24 04:00] VITALS: BP 96/60; TEMP 98; O2SAT 99
[2023-02-24] MEDS: ACETAMINOPHEN 325 MG TABLET PO PRN (04:03)
[2023-02-24] MEDS: PIPERACILLIN SODIUM/TAZOBACTAM 3.375 G in IV DEXTROSE 5% 50 ML IV SCH ×4 (05:40→23:56)
[2023-02-24 07:10] LABS: BASOPHILS # (AUTO) 0.1 K/UL (0.0-0.2); BASOPHILS % (AUTO) 1.1 % (0.0-2.0); EOSINOPHILS # (AUTO) 0.2 K/uL (0.0-0.7); EOSINOPHILS % (AUTO) 5.3 % (0.0-7.0); HEMATOCRIT 36.2 % (31.2-41.9); HEMOGLOBIN 11.9 g/dL (10.9-14.3); LYMPHOCYTES # (AUTO) 1.9 K/uL (0.8-4.8); LYMPHOCYTES % (AUTO) 39.5 % (20.5-51.5); MEAN CORPUSCULAR HEMOGLOBIN 30.9 uug (24.7-32.8); MEAN CORPUSCULAR HGB CONC 33 g/dL (32.3-35.6); MONOCYTES # (AUTO) 0.5 K/uL (0.1-1.30); MONOCYTES % (AUTO) 11.5 % (0.0-11.0); NEUTROPHILS % (AUTO) 42.6 % (38.5-71.5); PLATELET COUNT (AUTO) 217 K/uL (179-408); RED BLOOD CELL COUNT(AUTO) 3.85 MIL/uL (3.63-4.92); RED CELL DISTRIBUTION WIDTH 13.1 % (12.3-17.7); WHITE BLOOD COUNT (AUTO) 4.7 K/uL (3.8-11.8)
[2023-02-24 07:27] LABS: DIFFERENTIAL COMMENT 1
[2023-02-24 07:32] LABS: ALBUMIN 3.1 g/dL (3.4-5.0); BILIRUBIN,TOTAL 0.3 mg/dL (0.2-1.0); CALCIUM 9.5 mg/dL (8.5-10.1); CREATININE 0.7 mg/dL (0.6-1.3); MAGNESIUM 2.3 mg/dL (1.8-2.4); PHOSPHOROUS 3.9 mg/dL (2.5-4.9); POTASSIUM 4.3 mmol/L (3.5-5.1); TOTAL PROTEIN, SERUM 6.5 g/dL (6.4-8.2)
[2023-02-24] MEDS: NICOTINE 21 MG/24HR PATCH TD SCH (09:31)
[2023-02-24 11:11] VITALS: BP 97/71; TEMP 98.2; O2SAT 97
[2023-02-24] MEDS: VANCOMYCIN IV 1,250 MG in IV DEXTROSE 5% 250 ML IV SCH (12:38)
[2023-02-24 15:33] VITALS: BP 108/78; TEMP 98.6; O2SAT 94
[2023-02-24 16:50] VITALS: O2SAT 94
[2023-02-24] MEDS: IV NS 1000 ML 1,000 ML IV PRN (18:36)
[2023-02-24 21:33] VITALS: BP 91/56; TEMP 98.2; O2SAT 98
[2023-02-25] MEDS: VANCOMYCIN IV 1,250 MG in IV DEXTROSE 5% 250 ML IV SCH ×3 (00:30→23:28)
[2023-02-25] MEDS: PIPERACILLIN SODIUM/TAZOBACTAM 3.375 G in IV DEXTROSE 5% 50 ML IV SCH ×4 (05:00→23:28)
[2023-02-25 05:01] VITALS: BP 102/67; TEMP 98.2; O2SAT 99
[2023-02-25 07:06] LABS: PTH, INTACT 14 pg/mL (15-65)
[2023-02-25 07:09] LABS: BASOPHILS % (AUTO) 0.2 % (0.0-2.0); EOSINOPHILS % (AUTO) 0.4 % (0.0-7.0); HEMOGLOBIN 9.6 g/dL (10.9-14.3); LYMPHOCYTES % (AUTO) 11.1 % (20.5-51.5); MEAN CORPUSCULAR HEMOGLOBIN 31.5 uug (24.7-32.8); MEAN CORPUSCULAR HGB CONC 34 g/dL (32.3-35.6); MEAN CORPUSCULAR VOLUME 91.6 fL (75.5-95.3); MONOCYTES # (AUTO) 0.7 K/uL (0.1-1.30); MONOCYTES % (AUTO) 7.6 % (0.0-11.0); NEUTROPHILS # (AUTO) 7.2 K/uL (1.8-8.9); NEUTROPHILS % (AUTO) 80.7 % (38.5-71.5); PLATELET COUNT (AUTO) 257 K/uL (179-408); RED BLOOD CELL COUNT(AUTO) 3.06 MIL/uL (3.63-4.92); WHITE BLOOD COUNT (AUTO) 8.9 K/uL (3.8-11.8)
[2023-02-25 07:21] LABS: DIFFERENTIAL COMMENT 1
[2023-02-25 07:24] LABS: CALCIUM 7.6 mg/dL (8.5-10.1); CREATININE 0.9 mg/dL (0.6-1.3); MAGNESIUM 2.5 mg/dL (1.8-2.4)
[2023-02-25 07:50] LABS: POTASSIUM 2.6 mmol/L (3.5-5.1)
[2023-02-25] MEDS ORDERED: POTASSIUM CHLORIDE 20 MEQ TAB.PRT.SR PO ONE (08:15)
[2023-02-25] MEDS: NICOTINE 21 MG/24HR PATCH TD SCH (08:29)
[2023-02-25 09:07] LABS: A/G RATIO 0.9 (0.7-1.7); ALBUMIN 2.9 g/dL (2.9-4.4); ALPHA-1-GLOBULIN 0.2 g/dL (0.0-0.4); ALPHA-2-GLOBULIN 0.8 g/dL (0.4-1.0); BETA GLOBULIN 1.1 g/dL (0.7-1.3); GAMMA GLOBULIN 1.1 g/dL (0.4-1.8); GLOBULIN, TOTAL 3.3 g/dL (2.2-3.9); M-SPIKE Not Observed g/dL (Not Observed)
[2023-02-25 10:40] LABS: BAND % (MANUAL) 1 % (0-10); LYMPHOCYTES % (MANUAL) 14 % (20-40); MONOCYTES % (MANUAL) 10 % (2-10); MYELOCYTES % 1 % (0-0); NEUTROPHILS % (MANUAL) 74 % (42-75)
[2023-02-25 10:41] LABS: ANISOCYTOSIS 1+; PLATELET ESTIMATE ADEQUATE
[2023-02-25 11:00] VITALS: BP 127/51; TEMP 98.7; O2SAT 94
[2023-02-25 15:35] VITALS: BP 110/72; TEMP 99; O2SAT 96
[2023-02-25 20:33] VITALS: BP 104/74; TEMP 98.5; O2SAT 91
[2023-02-25 21:58] VITALS: O2SAT 93
[2023-02-26 00:05] VITALS: BP 103/65; TEMP 98.4; O2SAT 93
[2023-02-26] MEDS: PIPERACILLIN SODIUM/TAZOBACTAM 3.375 G in IV DEXTROSE 5% 50 ML IV SCH ×2 (05:32→12:10)
[2023-02-26 06:03] LABS: BASOPHILS % (AUTO) 0.2 % (0.0-2.0); EOSINOPHILS % (AUTO) 0.3 % (0.0-7.0); HEMATOCRIT 27.3 % (31.2-41.9); HEMOGLOBIN 9.1 g/dL (10.9-14.3); LYMPHOCYTES # (AUTO) 1.1 K/uL (0.8-4.8); LYMPHOCYTES % (AUTO) 9.5 % (20.5-51.5); MEAN CORPUSCULAR HEMOGLOBIN 30.4 uug (24.7-32.8); MEAN CORPUSCULAR HGB CONC 33 g/dL (32.3-35.6); MEAN CORPUSCULAR VOLUME 91.5 fL (75.5-95.3); MONOCYTES # (AUTO) 1.1 K/uL (0.1-1.30); MONOCYTES % (AUTO) 9.7 % (0.0-11.0); NEUTROPHILS # (AUTO) 9.5 K/uL (1.8-8.9); NEUTROPHILS % (AUTO) 80.3 % (38.5-71.5); PLATELET COUNT (AUTO) 304 K/uL (179-408); RED BLOOD CELL COUNT(AUTO) 2.98 MIL/uL (3.63-4.92); RED CELL DISTRIBUTION WIDTH 14.2 % (12.3-17.7); WHITE BLOOD COUNT (AUTO) 11.8 K/uL (3.8-11.8)
[2023-02-26 06:10] LABS: DIFFERENTIAL COMMENT 1
[2023-02-26 06:30] LABS: CALCIUM 7.6 mg/dL (8.5-10.1); CREATININE 0.8 mg/dL (0.6-1.3); MAGNESIUM 2.1 mg/dL (1.8-2.4); PHOSPHOROUS 3.1 mg/dL (2.5-4.9)
[2023-02-26] MEDS: IV NS 1000 ML 1,000 ML IV PRN (06:41)
[2023-02-26 07:14] LABS: POTASSIUM 2.8 mmol/L (3.5-5.1)
[2023-02-26] MEDS ORDERED: POTASSIUM CHLORIDE 20 MEQ TAB.PRT.SR PO ONE (07:45)
[2023-02-26] MEDS: POTASSIUM CHLORIDE 50 ML IV SCH ×4 (08:13→12:09)
[2023-02-26 08:36] VITALS: BP 97/65; TEMP 98.4; O2SAT 98
[2023-02-26] MEDS: NICOTINE 21 MG/24HR PATCH TD SCH (09:29)
[2023-02-26 11:36] VITALS: BP 99/57; TEMP 97.8; O2SAT 96
[2023-02-26] MEDS: VANCOMYCIN IV 1,250 MG in IV DEXTROSE 5% 250 ML IV SCH (12:10)
[2023-02-26] MEDS: ALPRAZOLAM 0.25 MG TABLET PO PRN (12:54)
[2023-02-26 16:22] VITALS: BP 115/58; TEMP 98.5; O2SAT 92
[2023-02-26] MEDS: HYDROCODONE/APAP 5-325MG TABLET PO PRN (17:07)
[2023-02-26] MEDS ORDERED: IPRATROPIUM BROMIDE 0.5 MG/2.5 ML NEBU NEB PRN (17:30)
[2023-02-26] MEDS ORDERED: BENZONATATE 100 MG CAPSULE PO PRN (18:15)
[2023-02-26 20:06] VITALS: BP 90/48; TEMP 98.4; O2SAT 96
[2023-02-26] MEDS: PIPERACILLIN SODIUM/TAZOBACTAM 3.375 G in IV DEXTROSE 5% 100 ML IV SCH (22:34)
[2023-02-27] MEDS: ALPRAZOLAM 0.25 MG TABLET PO PRN ×3 (00:18→17:14)
[2023-02-27 04:36] VITALS: BP 105/60; TEMP 98.4; O2SAT 96
[2023-02-27] MEDS: PIPERACILLIN SODIUM/TAZOBACTAM 3.375 G in IV DEXTROSE 5% 100 ML IV SCH ×3 (05:22→21:05)
[2023-02-27] MEDS: HYDROCODONE/APAP 5-325MG TABLET PO PRN ×3 (05:33→21:20)
[2023-02-27 06:10] LABS: BASOPHILS % (AUTO) 0.2 % (0.0-2.0); EOSINOPHILS # (AUTO) 0.1 K/uL (0.0-0.7); EOSINOPHILS % (AUTO) 0.7 % (0.0-7.0); HEMATOCRIT 28.2 % (31.2-41.9); HEMOGLOBIN 9.4 g/dL (10.9-14.3); LYMPHOCYTES # (AUTO) 1.2 K/uL (0.8-4.8); LYMPHOCYTES % (AUTO) 9.2 % (20.5-51.5); MEAN CORPUSCULAR HEMOGLOBIN 30.6 uug (24.7-32.8); MEAN CORPUSCULAR HGB CONC 33 g/dL (32.3-35.6); MEAN CORPUSCULAR VOLUME 91.4 fL (75.5-95.3); MONOCYTES % (AUTO) 7.5 % (0.0-11.0); NEUTROPHILS # (AUTO) 10.9 K/uL (1.8-8.9); NEUTROPHILS % (AUTO) 82.4 % (38.5-71.5); PLATELET COUNT (AUTO) 339 K/uL (179-408); RED BLOOD CELL COUNT(AUTO) 3.08 MIL/uL (3.63-4.92); RED CELL DISTRIBUTION WIDTH 14.3 % (12.3-17.7); WHITE BLOOD COUNT (AUTO) 13.2 K/uL (3.8-11.8)
[2023-02-27 06:45] LABS: DIFFERENTIAL COMMENT 1
[2023-02-27 06:55] LABS: CREATININE 0.8 mg/dL (0.6-1.3); MAGNESIUM 2.1 mg/dL (1.8-2.4); PHOSPHOROUS 3.5 mg/dL (2.5-4.9); POTASSIUM 3.1 mmol/L (3.5-5.1)
[2023-02-27 07:09] LABS: CALCIUM 7.5 mg/dL (8.5-10.1)
[2023-02-27] MEDS: NICOTINE 21 MG/24HR PATCH TD SCH (09:10)
[2023-02-27] MEDS ORDERED: POTASSIUM CHLORIDE 20 MEQ TAB.PRT.SR PO ONE (09:15)
[2023-02-27 10:32] LABS: BAND % (MANUAL) 2 % (0-10); LYMPHOCYTES % (MANUAL) 10 % (20-40); METAMYELOCYTES % 1 % (0-1); MONOCYTES % (MANUAL) 7 % (2-10); NEUTROPHILS % (MANUAL) 80 % (42-75); PLATELET ESTIMATE ADEQUATE
[2023-02-27 10:33] LABS: ANISOCYTOSIS 1+
[2023-02-27 11:34] VITALS: BP 119/76; TEMP 98.8; O2SAT 96
[2023-02-27] MEDS: levoFLOXacin 750 MG TABLET PO SCH (13:58)
[2023-02-27 15:05] VITALS: BP 106/70; TEMP 98.5; O2SAT 98
[2023-02-27 21:07] VITALS: BP 116/63; TEMP 98.6
[2023-02-27 21:28] VITALS: O2SAT 98
[2023-02-28 00:07] VITALS: BP 140/74; TEMP 98.6; O2SAT 98
[2023-02-28] MEDS: HYDROCODONE/APAP 5-325MG TABLET PO PRN (03:56)
[2023-02-28] MEDS: levoFLOXacin 750 MG TABLET PO SCH (05:04)
[2023-02-28] MEDS: PIPERACILLIN SODIUM/TAZOBACTAM 3.375 G in IV DEXTROSE 5% 100 ML IV SCH ×2 (05:04→13:49)
[2023-02-28] MEDS: ALPRAZOLAM 0.25 MG TABLET PO PRN (05:11)
[2023-02-28 05:41] VITALS: BP 126/68; TEMP 98.2; O2SAT 99
[2023-02-28 07:09] LABS: BASOPHILS % (AUTO) 0.3 % (0.0-2.0); EOSINOPHILS % (AUTO) 0.4 % (0.0-7.0); HEMATOCRIT 27.1 % (31.2-41.9); HEMOGLOBIN 9.3 g/dL (10.9-14.3); LYMPHOCYTES # (AUTO) 1.4 K/uL (0.8-4.8); LYMPHOCYTES % (AUTO) 10.7 % (20.5-51.5); MEAN CORPUSCULAR HEMOGLOBIN 31.4 uug (24.7-32.8); MEAN CORPUSCULAR HGB CONC 34 g/dL (32.3-35.6); MEAN CORPUSCULAR VOLUME 91.5 fL (75.5-95.3); MONOCYTES # (AUTO) 0.9 K/uL (0.1-1.30); MONOCYTES % (AUTO) 6.6 % (0.0-11.0); NEUTROPHILS # (AUTO) 10.8 K/uL (1.8-8.9); PLATELET COUNT (AUTO) 381 K/uL (179-408); RED BLOOD CELL COUNT(AUTO) 2.96 MIL/uL (3.63-4.92); WHITE BLOOD COUNT (AUTO) 13.2 K/uL (3.8-11.8)
[2023-02-28 07:31] LABS: DIFFERENTIAL COMMENT 1
[2023-02-28 07:36] LABS: CALCIUM 7.4 mg/dL (8.5-10.1); CREATININE 0.9 mg/dL (0.6-1.3); MAGNESIUM 1.9 mg/dL (1.8-2.4); PHOSPHOROUS 3.5 mg/dL (2.5-4.9); POTASSIUM 3.2 mmol/L (3.5-5.1)
[2023-02-28] MEDS: NICOTINE 21 MG/24HR PATCH TD SCH (09:22)
[2023-02-28] MEDS ORDERED: POTASSIUM CHLORIDE 20 MEQ TAB.PRT.SR PO ONE (10:00)
[2023-02-28 11:50] VITALS: BP 100/72; TEMP 97.6; O2SAT 94
[2023-02-28] MEDS ORDERED: NEPRO (VANILLA) 237 ML CAN PO SCH (13:00)
[2023-02-28 15:00] VITALS: O2SAT 94
[2023-03-01 19:06] LABS: MYCOPLASMA PNEUMONIAE IgG 469 U/mL (0-99); MYCOPLASMA PNEUMONIAE IgM <770 U/mL (0-769)
== END 2023-02-28 14:35 | disposition left against medical advice (07) | DRG 137 ==
LOC: ER 22:33 → TELE3 02-22 08:31
PROVIDERS: ADMIT Internal Medicine; ATTEND Student in an Organized Health Care Education/Training Program
DX: J15.69 Pneumonia due to other Gram-negative bacteria (principal); N17.0 Acute kidney failure with tubular necrosis; J96.01 Acute respiratory failure with hypoxia; E43 Unspecified severe protein-calorie malnutrition; E86.1 Hypovolemia; Z68.29 Body mass index [BMI] 29.0-29.9, adult; E87.1 Hypo-osmolality and hyponatremia; E87.6 Hypokalemia; F11.10 Opioid abuse, uncomplicated; F14.10 Cocaine abuse, uncomplicated; F17.210 Nicotine dependence, cigarettes, uncomplicated; K29.70 Gastritis, unspecified, without bleeding; Z98.890 Other specified postprocedural states; Z86.79 Personal history of other diseases of the circulatory system; E66.9 Obesity, unspecified; D64.9 Anemia, unspecified; T18.3XXA Foreign body in small intestine, initial encounter; W44.9XXA Unspecified foreign body entering into or through a natural orifice, initial encounter; Y92.89 Other specified places as the place of occurrence of the external cause
CPT/HCPCS: 36415; 36556; 36600; 70030-TC; 70220; 71045; 74018; 83605; 83690; 83735; 83970; 84100; 84155; 84165; 84300; 84484; 85025; 85730; 86738; 87040; 93005; 93307; A4606; A4663; C1758; G0378; G0480; J0456; J0696; J1885; J2543; J2765; J3370; J3480; J7040; J7050; J7070

== ENCOUNTER 2023-07-26 05:22 | Emergency (ER) | payer MEDICAID ==
[~2023-07-26] VITALS: Ht 167.6 cm; Wt 77.1 kg
[2023-07-26] MEDS ORDERED: IBUP-1957 PO (06:27)
[2023-07-26 06:44] VITALS: BP 132/72; TEMP 98.6; O2SAT 98
== END 2023-07-26 06:44 | disposition home or self-care (01) ==
LOC: ER 05:22
DX: S92.592A Other fracture of left lesser toe(s), initial encounter for closed fracture (principal); Z98.890 Other specified postprocedural states; Z79.899 Other long term (current) drug therapy; F17.200 Nicotine dependence, unspecified, uncomplicated; W01.0XXA Fall on same level from slipping, tripping and stumbling without subsequent striking against object, initial encounter; Y93.89 Activity, other specified; Y92.89 Other specified places as the place of occurrence of the external cause; Y99.8 Other external cause status
CPT/HCPCS: 73660; A4606; A4663

== ENCOUNTER 2024-07-10 00:51 | Emergency (ER) | payer MEDICAID ==
[~2024-07-10] VITALS: Ht 167.6 cm; Wt 77.1 kg
[~2024-07-10 00:51] MED LIST changes: -CEPH500C2 PO; -CYCL10TA9 PO; -HYDR-3980 PO; +IBUP-1957 PO; -NAPR500T6 PO; -SULF1TAB48 PO
[2024-07-10] MEDS ORDERED: NEOMY/BACITRA/POLYMYXIN B OINT UD PACKET TP ONE (01:51)
[2024-07-10] MEDS ORDERED: NEOM28.43 TP (01:51)
[2024-07-10] MEDS ORDERED: AMOX-430 PO (01:51)
[2024-07-10] MEDS: NEOMY/BACITRA/POLYMYXIN B OINT UD PACKET TP ONE (01:59)
[2024-07-10 02:00] VITALS: BP 145/97; O2SAT 98
== END 2024-07-10 02:00 | disposition home or self-care (01) ==
LOC: ER 00:55
DX: L03.011 Cellulitis of right finger (principal); R03.0 Elevated blood-pressure reading, without diagnosis of hypertension; F17.210 Nicotine dependence, cigarettes, uncomplicated; Z79.1 Long term (current) use of non-steroidal anti-inflammatories (NSAID); Z87.19 Personal history of other diseases of the digestive system; Z88.7 Allergy status to serum and vaccine; Z98.890 Other specified postprocedural states; Z86.79 Personal history of other diseases of the circulatory system; Z87.09 Personal history of other diseases of the respiratory system; Z87.39 Personal history of other diseases of the musculoskeletal system and connective tissue
CPT/HCPCS: A4606; A4663

== ENCOUNTER 2024-09-22 14:08 | Emergency (ER) | payer MEDICAID ==
[~2024-09-22] VITALS: Ht 167.6 cm; Wt 81.6 kg
[~2024-09-22 14:08] MED LIST changes: +AMOX-430 PO; +NEOM28.43 TP
[2024-09-22 14:48] LABS: *BILIRUBIN,URIN 2+ (NEGATIVE); *BLOOD, URINE NEGATIVE (NEGATIVE); *COLOR,URINE DARK YELLOW (YELLOW); *KETONES,URINE NEGATIVE (NEGATIVE); *PROTEIN,URINE 1+ (NEGATIVE); LEUKOCYTE ESTERASE ,URINE NEGATIVE (NEGATIVE); NITRITE, URINE NEGATIVE (NEGATIVE); PH,URINE 5.5 (5.0-8.0); UGLUCOSE NEGATIVE (NEGATIVE)
[2024-09-22 15:06] LABS: *CLARITY,URINE CLEAR (CLEAR)
[2024-09-22] MEDS ORDERED: ALBU18HF2 INH (15:14)
[2024-09-22] MEDS ORDERED: CEFD300C3 PO (15:14)
[2024-09-22 15:18] LABS: BACTERIA,URINE FEW /HPF (NONE SEEN); RBC,URINE 0-3 /HPF (0-3); SQUAMOUS EPITHELIAL CELL,UR MODERATE /HPF (NONE SEEN)
[2024-09-22 15:29] VITALS: BP 133/71; TEMP 97.9; O2SAT 96
== END 2024-09-22 15:30 | disposition home or self-care (01) ==
LOC: ER 14:08
DX: J40 Bronchitis, not specified as acute or chronic (principal); M54.9 Dorsalgia, unspecified; F17.200 Nicotine dependence, unspecified, uncomplicated; R07.2 Precordial pain; Z79.1 Long term (current) use of non-steroidal anti-inflammatories (NSAID); Z87.19 Personal history of other diseases of the digestive system; Z88.7 Allergy status to serum and vaccine; Z98.890 Other specified postprocedural states; Z86.79 Personal history of other diseases of the circulatory system; Z87.09 Personal history of other diseases of the respiratory system; Z87.39 Personal history of other diseases of the musculoskeletal system and connective tissue
CPT/HCPCS: 87077; 87086; A4606; A4663

== ENCOUNTER 2025-01-02 03:43 | Emergency (ER) | payer MEDICAID, OTHER ==
[~2025-01-02] VITALS: Ht 165.1 cm; Wt 87.5 kg
[~2025-01-02 03:43] MED LIST changes: +ALBU18HF2 INH; +CEFD300C3 PO
[2025-01-02] MEDS ORDERED: IBUPROFEN 400 MG TABLET ONE (04:22)
[2025-01-02] MEDS ORDERED: HYDROCODONE/APAP 5-325MG TABLET ONE (04:22)
[2025-01-02] MEDS: HYDROCODONE/APAP 5-325MG TABLET PO ONE (04:23)
[2025-01-02] MEDS: IBUPROFEN 400 MG TABLET PO ONE (04:23)
[2025-01-02 04:50] LABS: *BILIRUBIN,URIN 1+ (NEGATIVE); *BLOOD, URINE NEGATIVE (NEGATIVE); *CLARITY,URINE CLEAR (CLEAR); *COLOR,URINE YELLOW (YELLOW); *KETONES,URINE NEGATIVE (NEGATIVE); *PROTEIN,URINE NEGATIVE (NEGATIVE); *UROBILINOGEN,URINE 0.2 E.U./dl (NORMAL); LEUKOCYTE ESTERASE ,URINE NEGATIVE (NEGATIVE); NITRITE, URINE NEGATIVE (NEGATIVE); UGLUCOSE NEGATIVE (NEGATIVE)
[2025-01-02 04:54] LABS: *URINE HCG, QUAL NEGATIVE (NEGATIVE)
[2025-01-02 04:58] LABS: SQUAMOUS EPITHELIAL CELL,UR MODERATE /HPF (NONE SEEN)
[2025-01-02 06:00] VITALS: BP 129/81
[2025-01-02] MEDS ORDERED: SULF1TAB48 PO (06:17)
[2025-01-02] MEDS ORDERED: HYDR-3972 PO (06:17)
[2025-01-02 06:45] VITALS: BP 115/70; O2SAT 96
== END 2025-01-02 06:25 | disposition home or self-care (01) ==
LOC: ER 04:02
DX: G89.29 Other chronic pain (principal); M54.50 Low back pain, unspecified; F17.210 Nicotine dependence, cigarettes, uncomplicated; F19.10 Other psychoactive substance abuse, uncomplicated; Z79.1 Long term (current) use of non-steroidal anti-inflammatories (NSAID); Z87.01 Personal history of pneumonia (recurrent); Z87.19 Personal history of other diseases of the digestive system; Z88.7 Allergy status to serum and vaccine; Z98.890 Other specified postprocedural states; Z86.79 Personal history of other diseases of the circulatory system; Z87.39 Personal history of other diseases of the musculoskeletal system and connective tissue
CPT/HCPCS: 84703; A4606; A4663

== ENCOUNTER 2025-01-17 07:12 | Emergency (ER) | payer OTHER ==
[~2025-01-17] VITALS: Ht 165.1 cm; Wt 77.1 kg
[~2025-01-17 07:12] MED LIST changes: +HYDR-3972 PO; +SULF1TAB48 PO
[2025-01-17 07:28] VITALS: BP 142/86
[2025-01-17] MEDS ORDERED: SULFAMETH/TRIMETH 800/160 MG TABLET ONE (08:02)
[2025-01-17] MEDS ORDERED: TDAP DIPH,PERTUSS,TET VAC/PF 0.5 ML DISP.SYRIN IM ONE (08:02)
[2025-01-17] MEDS ORDERED: NEOMY/BACITRA/POLYMYXIN B OINT UD PACKET TP ONE (08:02)
[2025-01-17] MEDS: NEOMY/BACITRA/POLYMYXIN B OINT UD PACKET TP ONE (08:23)
[2025-01-17] MEDS: SULFAMETH/TRIMETH 800/160 MG TABLET PO ONE (08:23)
[2025-01-17] MEDS: TDAP DIPH,PERTUSS,TET VAC/PF 0.5 ML DISP.SYRIN IM ONE (08:24)
[2025-01-17] MEDS ORDERED: SULF1TAB48 PO (08:32)
[2025-01-17] MEDS ORDERED: CEPH500C2 PO (08:32)
[2025-01-17 08:46] VITALS: BP 142/86; O2SAT 99
== END 2025-01-17 08:47 | disposition home or self-care (01) ==
LOC: ER 07:12
DX: S61.212A Laceration without foreign body of right middle finger without damage to nail, initial encounter (principal); L08.9 Local infection of the skin and subcutaneous tissue, unspecified; I51.9 Heart disease, unspecified; J18.9 Pneumonia, unspecified organism; F17.210 Nicotine dependence, cigarettes, uncomplicated; Z79.1 Long term (current) use of non-steroidal anti-inflammatories (NSAID); Z79.899 Other long term (current) drug therapy; Z87.01 Personal history of pneumonia (recurrent); Z87.19 Personal history of other diseases of the digestive system; Z98.890 Other specified postprocedural states; W25.XXXA Contact with sharp glass, initial encounter; Y93.89 Activity, other specified; Y92.89 Other specified places as the place of occurrence of the external cause; Y99.8 Other external cause status
CPT/HCPCS: 90715; 98960; A4606; A4663

== ENCOUNTER 2025-01-24 03:57 | Emergency (ER) | payer OTHER ==
[~2025-01-24] VITALS: Ht 165.1 cm; Wt 87.5 kg
[~2025-01-24 03:57] MED LIST changes: +CEPH500C2 PO
[2025-01-24 04:00] VITALS: BP 156/92
[2025-01-24 04:33] VITALS: BP 133/82; TEMP 98; O2SAT 98
== END 2025-01-24 04:36 | disposition home or self-care (01) ==
LOC: ER 04:00
DX: S61.212A Laceration without foreign body of right middle finger without damage to nail, initial encounter (principal); I51.9 Heart disease, unspecified; Z79.1 Long term (current) use of non-steroidal anti-inflammatories (NSAID); Z87.19 Personal history of other diseases of the digestive system; Z87.891 Personal history of nicotine dependence; Z88.7 Allergy status to serum and vaccine
CPT/HCPCS: A4606; A4663

== ENCOUNTER 2025-03-26 17:33 | Emergency (ER) | payer OTHER ==
[~2025-03-26] VITALS: Ht 165.1 cm; Wt 83.5 kg
[~2025-03-26 17:33] MED LIST changes: +AMOX-319 PO; -AMOX-430 PO
[2025-03-26 17:37] VITALS: BP 160/97
[2025-03-26] MEDS ORDERED: MUPI15CR TP (18:24)
[2025-03-26] MEDS ORDERED: CLIN-188 PO (18:24)
[2025-03-26 18:31] VITALS: BP 145/89; TEMP 98; O2SAT 94
== END 2025-03-26 18:32 | disposition home or self-care (01) ==
LOC: ER 17:33
DX: L03.115 Cellulitis of right lower limb (principal); I51.9 Heart disease, unspecified; F17.200 Nicotine dependence, unspecified, uncomplicated; Z79.1 Long term (current) use of non-steroidal anti-inflammatories (NSAID); Z87.19 Personal history of other diseases of the digestive system; Z88.7 Allergy status to serum and vaccine
CPT/HCPCS: A4606; A4663

== ENCOUNTER 2025-03-28 08:19 | Emergency (ER) | payer OTHER ==
[~2025-03-28] VITALS: Ht 165.1 cm; Wt 81.6 kg
[~2025-03-28 08:19] MED LIST changes: +CLIN-188 PO; +MUPI15CR TP
[2025-03-28 08:24] VITALS: BP 123/75
[2025-03-28] MEDS ORDERED: SULFAMETH/TRIMETH 800/160 MG TABLET ONE (08:50)
[2025-03-28] MEDS: SULFAMETH/TRIMETH 800/160 MG TABLET PO ONE (08:59)
[2025-03-28 09:02] VITALS: BP 123/75; TEMP 98; O2SAT 97
== END 2025-03-28 09:03 | disposition home or self-care (01) ==
LOC: ER 08:19
DX: L03.115 Cellulitis of right lower limb (principal); I51.9 Heart disease, unspecified; F17.200 Nicotine dependence, unspecified, uncomplicated; Z79.1 Long term (current) use of non-steroidal anti-inflammatories (NSAID); Z87.19 Personal history of other diseases of the digestive system; Z88.7 Allergy status to serum and vaccine
CPT/HCPCS: A4606; A4663